=== PATIENT | male | born 1935 | race African-American/Black ===

== ENCOUNTER 2020-05-06 10:57 | Emergency (ER) | payer OTHER, BC ==
[~2020-05-06] VITALS: Ht 170.2 cm; Wt 78.0 kg
[~2020-05-06 10:57] MED LIST: ALLOPURINOL 30300 M2 PO; ARICEPT 5 MG TAB5 MG PO; DULOXETINE HCL60 MG PO; FLOMAX0.4 MG PO; PAROXETINE HCL20 MG PO; PRAZOSIN 1 MG CA1 M1 PO; QUETIAPINE FUMA50 MG PO; SINEMET 25-1001 EAC1 PO; XANAX 0.5 MG0.5 MG PO; ZOCOR20 MG PO
[2020-05-06] MEDS ORDERED: ARICEPT10 M1 PO (11:12)
[2020-05-06] MEDS ORDERED: LIPITOR 20 MG T20 M1 PO (11:13)
[2020-05-06] MEDS ORDERED: CHILDREN'S ASPI81 M1 PO (11:13)
[2020-05-06] MEDS ORDERED: KEPPRA100 MG/1 M PO (11:14)
[2020-05-06] MEDS ORDERED: NORVASC 2.5 MG2.5 M1 PO (11:15)
[2020-05-06] MEDS ORDERED: ZESTRIL40 MG PO (11:15)
[2020-05-06] MEDS ORDERED: PAROXETINE HCL20 MG PO (11:16)
[2020-05-06] MEDS ORDERED: FINASTERIDE5 MG PO (11:16)
[2020-05-06] MEDS ORDERED: SINEMET 25-1001 EAC1 PO (11:16)
[2020-05-06 14:30] VITALS: BP 131/68
== END 2020-05-06 14:30 ==
LOC: ER 10:57
DX: S00.31XA Abrasion of nose, initial encounter (principal); S09.90XA Unspecified injury of head, initial encounter; M25.552 Pain in left hip; M25.521 Pain in right elbow; M25.522 Pain in left elbow; M54.2 Cervicalgia; W05.0XXA Fall from non-moving wheelchair, initial encounter; Y93.89 Activity, other specified; Y92.89 Other specified places as the place of occurrence of the external cause; Y99.8 Other external cause status